=== PATIENT | male | born 1990 | race Caucasian/White ===

== ENCOUNTER 2025-06-03 11:27 | Emergency (ER) | payer MEDICAID ==
[~2025-06-03] VITALS: Ht 175.3 cm; Wt 118.2 kg
[2025-06-03 11:30] VITALS: BP 140/89; PULSE 96; RESP 18; TEMP 97.9; O2SAT 99
[2025-06-03 13:46] LABS: GLUCOMETER DEV NAME(LOC) ERT.7; GLUCOSE,POINT OF CARE 342 MG/DL (70-110)
[2025-06-03] MEDS ORDERED: CLOT15CR29 TP (14:00)
== END 2025-06-03 14:17 | disposition home or self-care (01) ==
LOC: EMS 12:00
DX: B37.9 Candidiasis, unspecified (principal); E11.9 Type 2 diabetes mellitus without complications
CPT/HCPCS: 82962; 87210; 87491; 87591; 99283